=== PATIENT | female | born 1975 | race African-American/Black ===

== ENCOUNTER 2017-09-11 17:20 | Emergency (ER) | payer OTHER ==
[~2017-09-11] VITALS: Ht 175.3 cm; Wt 107.7 kg
[~2017-09-11 17:20] MED LIST: NOHOMEMEDS
[2017-09-11 19:04] LABS: CHLORIDE 103 mEq/L (99-109)
[2017-09-11 19:05] LABS: POTASSIUM 3.9 mEq/L (3.7-5.4); SODIUM 137 mEq/L (136-147)
[2017-09-11 19:06] LABS: GLUCOSE 88 mg/dL (70-99)
[2017-09-11 19:07] LABS: HEMATOCRIT 26.6 % (36.0-46.0); HEMOGLOBIN 7.3 G/DL (11.9-15.5); MCH 18.2 PG (29.0-34.0); MCHC 27.4 G/DL (30.0-36.0); MCV 66.3 FL (83-99); RBC DIS.WIDTH-CV 19.8 % (11.8-14.6); RBC DIS.WIDTH-SD 46.5 % (39-53); RED BLOOD COUNT 4.01 M/uL (3.80-5.20); WHITE BLOOD COUNT 5.2 K/uL (4.1-10.2)
[2017-09-11 19:10] LABS: CREATININE 0.8 mg/dL (0.6-1.3); GFR ESTIMATE (CALCULATED) > 59 mL/min/
[2017-09-11 19:11] LABS: UREA NITROGEN (BUN) 10 mg/dL (9-23)
[2017-09-11 19:46] LABS: PLAT.SUFFICIENCY ADEQUATE; PLATELET COUNT 302 K/uL (156-360)
[2017-09-11] MEDS ORDERED: VITRON-C TABLE1 EACH PO (22:02)
[2017-09-12 02:45] VITALS: BP 146/90
== END 2017-09-12 03:00 | disposition home or self-care (01) ==
LOC: EME 17:20
DX: D50.9 Iron deficiency anemia, unspecified (principal); N94.6 Dysmenorrhea, unspecified
CPT/HCPCS: 80048; 85027; 86850; 86900; 86901; 86920; 99281; 99285; P9016